=== PATIENT | female | born 1960 | race Caucasian/White ===

== ENCOUNTER → 2020-12-03 | Outpatient (CLI) | payer BC | LOC: KOH-I 11:28 | DX: R05 Cough (principal); J98.4 Other disorders of lung | CPT/HCPCS: 71046 ==

== ENCOUNTER → 2021-02-06 | Outpatient (CLI) | payer BC | LOC: EXRD 09:24 | DX: M25.552 Pain in left hip (principal); M25.551 Pain in right hip; G89.29 Other chronic pain | CPT/HCPCS: 73522 ==

== ENCOUNTER → 2021-03-13 | Outpatient (CLI) | payer BC | LOC: KOH-I 02-27 09:45 | DX: M25.551 Pain in right hip (principal); M05.79 Rheumatoid arthritis with rheumatoid factor of multiple sites without organ or systems involvement; G89.29 Other chronic pain | CPT/HCPCS: 73721 ==

== ENCOUNTER → 2021-06-18 | Outpatient (CLI) | payer BC ==
[2021-06-18 13:37] LABS: HEMOGLOBIN 13.5 gm/dl (12.3-15.3); RED BLOOD COUNT 4.39 M/UL (4.00-5.10); WHITE BLOOD COUNT 3.9 K/UL (4.5-11.0)
[2021-06-18 14:03] LABS: BUN/CREATININE RATIO 12 (0-10)
== END ==
LOC: LAB 12:09
PROVIDERS: Internal Medicine
DX: D64.9 Anemia, unspecified (principal); R53.83 Other fatigue; M05.79 Rheumatoid arthritis with rheumatoid factor of multiple sites without organ or systems involvement; M25.50 Pain in unspecified joint; D89.89 Other specified disorders involving the immune mechanism, not elsewhere classified; Z92.29 Personal history of other drug therapy; Z79.899 Other long term (current) drug therapy; E78.5 Hyperlipidemia, unspecified
CPT/HCPCS: 80053; 80061; 82728; 83540; 83550; 84466; 85025; 85045; 85652; 86140